=== PATIENT | male | born 1955 | race Caucasian/White ===

== ENCOUNTER 2021-09-06 05:10 | Emergency (ER) | payer OTHER | END 2021-09-06 06:37 | LOC: JP.ED 05:10 | DX: S91.201A Unspecified open wound of right great toe with damage to nail, initial encounter (principal); S80.211A Abrasion, right knee, initial encounter; S90.811A Abrasion, right foot, initial encounter; F12.10 Cannabis abuse, uncomplicated; F11.10 Opioid abuse, uncomplicated; F16.10 Hallucinogen abuse, uncomplicated; F15.90 Other stimulant use, unspecified, uncomplicated; R44.1 Visual hallucinations; W22.09XA Striking against other stationary object, initial encounter | CPT/HCPCS: 36415; 80053; 80305-QW; 80307; 81003; 85025; 99282; 99284 ==